=== PATIENT | male | born 1965 | race African-American/Black ===

== ENCOUNTER 2023-03-27 11:04 | Outpatient (CLI) | payer BC | END 2023-03-27 11:05 | disposition home or self-care (01) | LOC: NAV RAD 11:04 | PROVIDERS: ATTEND Nurse Practitioner Family | DX: M54.50 Low back pain, unspecified (principal); M47.816 Spondylosis without myelopathy or radiculopathy, lumbar region | CPT/HCPCS: 72100 ==